=== PATIENT | female | born 1960 | race Caucasian/White ===

== ENCOUNTER 2020-06-28 09:25 | Outpatient (RCR) | payer BC, SELFPAY ==
[2020-06-28] MEDS: COVID-19 VACC, MRNA(PFIZER)/PF 30 MCG/0.3 ML SYRINGE IM (09:29)
[2020-07-19] MEDS: COVID-19 VACC, MRNA(PFIZER)/PF 30 MCG/0.3 ML SYRINGE IM (09:16)
== END 2020-09-20 23:59 ==
LOC: IMMUN 09:25
PROVIDERS: Visit Provider Family Medicine
DX: Z23 Encounter for immunization (principal)
CPT/HCPCS: 0001A; 0002A; 91300